=== PATIENT | female | born 1935 | race Caucasian/White ===

== ENCOUNTER 2018-04-19 15:28 | Inpatient (IN) ==
--- NOTE | 2018-04-19 16:29 | ED ---
HPI General Chief Complaint: Psychiatric Symptoms Stated Complaint: Psych Eval/FCSO Time Seen by Provider: 04/19/18 16:18 Source: patient and other (Urena act report) History of Present Illness HPI Narrative: She is alert and oriented to self, president, [id number] female presents to the emergency department under Urena act. According to the Urena act report the patient was rambling incoherently and telling me that she observed people currently in her home that were not present. She was unable to formulate a complete thought and appeared extremely paranoid. It was determined that she met Urena act criteria without care or may not be able to care for herself causing personal neglect. On my examination the patient states she has had some confusion for an unknown amount of time. She says it could have been 6 months or the last couple days, but she does not know. When I asked her if she lives by herself she says "I do now." I asked her how long she has been living by herself and she says "for 1 day." She is alert and oriented to self, place, president, but not time. She denies suicidal or homicidal ideations. Denies history of suicidal attempts. Denies fever, vomiting, chest pain, shortness of breath, abdominal pain, dysuria. Reports urinary frequency, but states she drinks a lot of water. When asked if she is had any recent falls or injury, she says she can remember an occurrence where she fell, but does not know when it occurred. Denies auditory or visual hallucinations. Denies illicit drug use, tobacco use. Reports occasional alcohol use. Denies psychiatric history. Denies seeing a psychiatrist for any reason. Onset unknown. Duration unknown. Symptoms are moderate to severe in severity. No known aggravating or relieving factors. No treatments tried. History of hypertension. Allergies as listed on the chart. Primary care provider is Dr. dumas. Has no other medical complaints. No other modifying factors or associated signs and symptoms. Related Data Home Medications Medication Instructions Recorded Confirmed enalapril maleate 2.5 mg PO BID 04/19/18 04/19/18 isosorbide mononitrate 60 mg PO DAILY 04/19/18 04/19/18 rosuvastatin [Crestor] 5 mg PO DAILY 04/19/18 04/19/18 Previous Rx's Medication Instructions Recorded nitrofurantoin monohyd/m-cryst 100 mg PO BID 5 Days #10 cap 04/19/18 [Macrobid] Allergies Allergy/AdvReac Type Severity Reaction Status Date / Time cephalexin Allergy Intermediate BLISTERS Unverified 10/18/16 11:59 penicillin G Allergy Intermediate BLISTERS, Unverified 10/18/16 11:59 SWELLING Cephalosporins Allergy Unknown UNKNOWN Verified 04/19/18 18:40 grapefruit Allergy Unknown STOMACH Unverified 10/18/16 11:59 ACHES Penicillins Allergy Unknown UNKNOWN Verified 04/19/18 18:40 pineapple Allergy Unknown CHAPPING Unverified 10/18/16 11:59 OF SKIN FROM CONTACT WITH PINEAPPLE hydromorphone AdvReac Unknown HALLUCINATI Unverified 10/18/16 11:59 ONS NICKEL Allergy Unknown CONTACT Uncoded 09/16/13 08:53 RASH FROM EXPOSURE TO NICKEL Review of Systems ROS: all other systems reviewed are negative [facility] Medical History Medical History Coronary artery disease (Acute) H/O fracture of wrist (Acute) H/O peptic ulcer (Acute) H/O recurrent urinary tract infection (Acute) H/O: osteoarthritis (Acute) Hx of polymyalgia rheumatica (Acute) Hypertension (Acute) Wears glasses (Acute) Surgical History Surgical History History of appendectomy (Acute) History of cataract extraction with lens replacement (Acute) History of coronary artery stent placement (Acute) History of open reduction and internal fixation (ORIF) procedure (Acute) Hx of CABG (Acute) Hx of cataract surgery (Acute) Social History Social History Substance History: No History of Abuse Second Hand Smoke Exposure: No Smoking Status: Never smoker How Often Do You Have a Drink Containing Alcohol: Never Recent Travel in [place] within the Last 8 Weeks: No Recent Out of Country Travel within the Last 8 Weeks: No Exam Narrative Exam Narrative: GENERAL: Well-nourished, well-developed elderly, female patient, in no acute distress SKIN: Warm and dry. HEAD: Atraumatic. Normocephalic. EYES: Pupils equal and round. ENT: Mucosa pink and moist. NECK: Supple. Trachea midline. CARDIOVASCULAR: Regular rate and rhythm. No murmur appreciated. RESPIRATORY: No accessory muscle use. Clear to auscultation. Breath sounds equal bilaterally. GASTROINTESTINAL: Abdomen soft, non-tender, nondistended. Hepatic and splenic margins not palpable. Bowel sounds are active 4 quadrants. MUSCULOSKELETAL: No obvious deformities. No clubbing. No cyanosis. No edema. BACK: No CVA tenderness. NEUROLOGICAL: Awake and alert. Oriented 3; soft, place, president; not oriented to time. No obvious cranial nerve deficits. Motor grossly within normal limits. Normal speech. Moves all extremities. 5/5 strength to all extremities. PSYCHIATRIC: No delusional thought processes. No hallucinations. Course Initial Documented Vital Signs Temperature 97.6 F 04/19/18 15:49 Pulse Rate 91 H 04/19/18 15:49 Respiratory Rate 18 04/19/18 15:49 Blood Pressure 164/78 H 04/19/18 15:49 Pulse Oximetry 100 04/19/18 15:49 Last Documented Vital Signs Temperature 97.8 F 04/23/18 06:36 Pulse Rate 99 H 04/23/18 06:36 Respiratory Rate 18 04/23/18 06:36 Blood Pressure 154/70 H 04/23/18 06:36 Pulse Oximetry 94 L 04/23/18 06:36 Medical Decision Making [facility] Narrative Medical decision making narrative: Patient presents under a Urena act. Physical examination and vital signs are essentially unremarkable. Patient has no medical complaints to report. Psych screen has been ordered. If the laboratory results are unremarkable, the patient will be medically cleared for psychiatric evaluation and disposition. CT head ordered. CT head concluded: No acute findings in the brain.2. 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 Patient provided a copy of the CT report. Patient has altered mental status at this time. Otherwise, the patient needs to follow-up with skoog machine operator in regards to the retroconal mass in the right orbit. Urinalysis positive for infection. Patient is allergic to Keflex and penicillin. Macrobid ordered and scheduled. Macrobid prescription printed out for home. Medical Screen Exam Complete: Yes Emergency Medical Condition: Yes Differential Diagnosis Differential Diagnosis: Dementia, UTI, brief psychotic disorder, hallucinations , medical clearance for psychiatric assessment Lab Data Result diagrams: 04/22/18 18:14 04/22/18 18:14 Lab Results 04/19/18 04/19/18 04/19/18 Range/Units 16:09 16:09 16:22 WBC 6.4 (4.0-11.0) th/mm3 RBC 3.64 L (4.00-5.30) mil/mm3 Hgb 12.0 (11.6-15.3) gm/dL Hct 34.3 L (35.0-46.0) % MCV 94.3 (80.0-100.0) fL MCH 32.9 (27.0-34.0) pg MCHC 34.9 (32.0-36.0) % RDW 13.1 (11.6-17.2) % Plt Count 217 (150-450) th/mm3 MPV 8.5 (7.0-11.0) fL Neut % (Auto) 71.4 H (16.0-70.0) % Lymph % (Auto) 18.9 (9.0-44.0) % [place] % (Auto) 8.6 H (0.0-8.0) % Eos % (Auto) 0.7 (0.0-4.0) % Baso % (Auto) 0.4 (0.0-2.0) % Neut # (Auto) 4.6 (1.8-7.7) th/mm3 Lymph # (Auto) 1.2 (1.0-4.8) th/mm3 [place] # (Auto) 0.6 (0.0-0.9) th/mm3 Eos # (Auto) 0.0 (0.0-0.4) th/mm3 Baso # (Auto) 0.0 (0.0-0.2) th/mm3 WBC Differential . Differential Comment Auto diff final Sodium (136-145) meq/L Potassium (3.5-5.1) meq/L Chloride (98-107) meq/L Carbon Dioxide (21.0-32.0) meq/L Anion Gap (5-15) meq/L BUN (7-18) mg/dL Creatinine (0.50-1.00) mg/dL Estimated GFR (>89) mL/min POC Glucose (68-110) mg/dl Random Glucose (74-106) mg/dL Calcium (8.5-10.1) mg/dL Magnesium (1.5-2.5) mg/dL Total Bilirubin (0.2-1.0) mg/dL AST (15-37) U/L ALT (10-53) U/L Alkaline Phosphatase (45-117) U/L Total Protein (6.4-8.2) g/dL Albumin (3.4-5.0) g/dL TSH (0.358-3.740) uIU/mL Urine Color Yellow (Yellw/Straw) Urine Clarity Hazy H (Clear) Urine pH 6.0 (5.0-8.5) Ur Specific [place] 1.014 (1.002-1.035) Urine Protein Negative (Neg-Trace) mg/dL Urine Glucose (UA) Negative (Negative) mg/dL Urine Ketones Trace H (Negative) mg/dL Urine Occult Blood Negative (Negative) Urine Nitrate Negative (Negative) Urine Bilirubin Negative (Negative) Urine Urobilinogen Less than 2 (Less than 2) mg/dL Ur Leukocyte Esterase Trace H (Negative) Urine RBC 1 (0-3) /hpf Urine WBC 18 H (0-5) /hpf Ur Squamous Epith Cells 1 (0-5) /hpf Urine Bacteria Many H (None) /hpf Urine Mucus Few H (Occasional) /lpf Micro UA Comment Culture indicated Ur Microscopic Review Not Reportable Urine Culture Comments Culture indicated Salicylates (2.8-20.0) mg/dL Urine Opiates Screen Neg (Neg) Acetaminophen (10.0-30.0) mcg/mL Ur Barbiturates Screen Neg (Neg) Ur Amphetamines Screen Neg (Neg) U Benzodiazepines Scrn Neg (Neg) Urine Cocaine Screen Neg (Neg) U Cannabinoids Screen Neg (Neg) Serum Alcohol (0-5) mg/dL 04/19/18 04/19/18 04/20/18 Range/Units 16:22 16:22 17:14 WBC (4.0-11.0) th/mm3 RBC (4.00-5.30) mil/mm3 Hgb (11.6-15.3) gm/dL Hct (35.0-46.0) % MCV (80.0-100.0) fL MCH (27.0-34.0) pg MCHC (32.0-36.0) % RDW (11.6-17.2) % Plt Count (150-450) th/mm3 MPV (7.0-11.0) fL Neut % (Auto) (16.0-70.0) % Lymph % (Auto) (9.0-44.0) % [place] % (Auto) (0.0-8.0) % Eos % (Auto) (0.0-4.0) % Baso % (Auto) (0.0-2.0) % Neut # (Auto) (1.8-7.7) th/mm3 Lymph # (Auto) (1.0-4.8) th/mm3 [place] # (Auto) (0.0-0.9) th/mm3 Eos # (Auto) (0.0-0.4) th/mm3 Baso # (Auto) (0.0-0.2) th/mm3 WBC Differential Differential Comment Sodium 140 (136-145) meq/L Potassium 3.8 (3.5-5.1) meq/L Chloride 108 H (98-107) meq/L Carbon Dioxide 24.7 (21.0-32.0) meq/L Anion Gap 7 (5-15) meq/L BUN 23 H (7-18) mg/dL Creatinine 1.23 H (0.50-1.00) mg/dL Estimated GFR 41 L (>89) mL/min POC Glucose 177 H (68-110) mg/dl Random Glucose 99 (74-106) mg/dL Calcium 8.9 (8.5-10.1) mg/dL Magnesium 2.3 (1.5-2.5) mg/dL Total Bilirubin 0.6 (0.2-1.0) mg/dL AST 22 (15-37) U/L ALT 24 (10-53) U/L Alkaline Phosphatase 50 (45-117) U/L Total Protein 8.0 (6.4-8.2) g/dL Albumin 4.2 (3.4-5.0) g/dL TSH 1.560 (0.358-3.740) uIU/mL Urine Color (Yellw/Straw) Urine Clarity (Clear) Urine pH (5.0-8.5) Ur Specific Ozan (1.002-1.035) Urine Protein (Neg-Trace) mg/dL Urine Glucose (UA) (Negative) mg/dL Urine Ketones (Negative) mg/dL Urine Occult Blood (Negative) Urine Nitrate (Negative) Urine Bilirubin (Negative) Urine Urobilinogen (Less than 2) mg/dL Ur Leukocyte Esterase (Negative) Urine RBC (0-3) /hpf Urine WBC (0-5) /hpf Ur Squamous Epith Cells (0-5) /hpf Urine Bacteria (None) /hpf Urine Mucus (Occasional) /lpf Micro UA Comment Ur Microscopic Review Urine Culture Comments Salicylates Less than 1.7 L (2.8-20.0) mg/dL Urine Opiates Screen (Neg) Acetaminophen Less than 2.0 L (10.0-30.0) mcg/mL Ur Barbiturates Screen (Neg) Ur Amphetamines Screen (Neg) U Benzodiazepines Scrn (Neg) Urine Cocaine Screen (Neg) U Cannabinoids Screen (Neg) Serum Alcohol Less than 3 (0-5) mg/dL 04/22/18 04/22/18 Range/Units 18:14 18:14 WBC 7.4 (4.0-11.0) th/mm3 RBC 3.85 L (4.00-5.30) mil/mm3 Hgb 12.2 (11.6-15.3) gm/dL Hct 36.5 (35.0-46.0) % MCV 94.7 (80.0-100.0) fL MCH 31.7 (27.0-34.0) pg MCHC 33.5 (32.0-36.0) % RDW 13.4 (11.6-17.2) % Plt Count 265 (150-450) th/mm3 MPV 9.3 (7.0-11.0) fL Neut % (Auto) 68.5 (16.0-70.0) % Lymph % (Auto) 20.9 (9.0-44.0) % [place] % (Auto) 9.9 H (0.0-8.0) % Eos % (Auto) 0.3 (0.0-4.0) % Baso % (Auto) 0.4 (0.0-2.0) % Neut # (Auto) 5.1 (1.8-7.7) th/mm3 Lymph # (Auto) 1.6 (1.0-4.8) th/mm3 [place] # (Auto) 0.7 (0.0-0.9) th/mm3 Eos # (Auto) 0.0 (0.0-0.4) th/mm3 Baso # (Auto) 0.0 (0.0-0.2) th/mm3 WBC Differential . Differential Comment Auto diff final Sodium 141 (136-145) meq/L Potassium 4.2 (3.5-5.1) meq/L Chloride 112 H (98-107) meq/L Carbon Dioxide 19.5 L (21.0-32.0) meq/L Anion Gap 10 (5-15) meq/L BUN 33 H (7-18) mg/dL Creatinine 1.89 H (0.50-1.00) mg/dL Estimated GFR 25 L (>89) mL/min POC Glucose (68-110) mg/dl Random Glucose 103 (74-106) mg/dL Calcium 9.2 (8.5-10.1) mg/dL Magnesium (1.5-2.5) mg/dL Total Bilirubin (0.2-1.0) mg/dL AST (15-37) U/L ALT (10-53) U/L Alkaline Phosphatase (45-117) U/L Total Protein (6.4-8.2) g/dL Albumin (3.4-5.0) g/dL TSH (0.358-3.740) uIU/mL Urine Color (Yellw/Straw) Urine Clarity (Clear) Urine pH (5.0-8.5) Ur Specific [place] (1.002-1.035) Urine Protein (Neg-Trace) mg/dL Urine Glucose (UA) (Negative) mg/dL Urine Ketones (Negative) mg/dL Urine Occult Blood (Negative) Urine Nitrate (Negative) Urine Bilirubin (Negative) Urine Urobilinogen (Less than 2) mg/dL Ur Leukocyte Esterase (Negative) Urine RBC (0-3) /hpf Urine WBC (0-5) /hpf Ur Squamous Epith Cells (0-5) /hpf Urine Bacteria (None) /hpf Urine Mucus (Occasional) /lpf Micro UA Comment Ur Microscopic Review Urine Culture Comments Salicylates (2.8-20.0) mg/dL Urine Opiates Screen (Neg) Acetaminophen (10.0-30.0) mcg/mL Ur Barbiturates Screen (Neg) Ur Amphetamines Screen (Neg) U Benzodiazepines Scrn (Neg) Urine Cocaine Screen (Neg) U Cannabinoids Screen (Neg) Serum Alcohol (0-5) mg/dL Imaging Data Radiologist's impression: Head CT 04/19/18 16:37 CONCLUSION: 1. No acute findings in the brain. 2. 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 . Carotid Doppler Study 04/20/18 00:00 CONCLUSION: Minimal plaque at the carotid bulb regions without significant stenosis. Discharge Plan Discharge Disposition Patient Disposition: Sign Out(ED Internal Use Only) Discharge Condition Condition: Stable Discharge Order Discharge Orders: ED Use Only Admit Order (Routine); Ordered 04/19/18 Ordered By: Sam Joyce Discharge Details Diagnosis: Encounter for psychiatric assessment, Altered mental status, UTI (urinary tract infection) Physicians Team ED Provider: David Kramer ED Midlevel Provider: Pat Tolbert Primary Care Provider: Carter Francois Attending Provider: Taco Kuo Other Providers: Vimal Joyce Status ED Status: Left Department Discharge Information Discharge Date/Time: 04/19/18 22:00
[2018-04-19 16:39] LABS: Baso % (Auto) 0.4 % (0.0-2.0); Eos % (Auto) 0.7 % (0.0-4.0); Hematocrit 34.3 % (35.0-46.0); Lymph # (Auto) 1.2 th/mm3 (1.0-4.8); Lymph % (Auto) 18.9 % (9.0-44.0); Mean Corpuscular HGB Conc 34.9 % (32.0-36.0); Mean Corpuscular Hemoglobin 32.9 pg (27.0-34.0); Mean Corpuscular Volume 94.3 fL (80.0-100.0); Mean Platelet Volume 8.5 fL (7.0-11.0); Mono # (Auto) 0.6 th/mm3 (0.0-0.9); Mono % (Auto) 8.6 % (0.0-8.0); Neut # (Auto) 4.6 th/mm3 (1.8-7.7); Neut % (Auto) 71.4 % (16.0-70.0); Platelet Count 217 th/mm3 (150-450); Red Blood Count 3.64 mil/mm3 (4.00-5.30); Red Cell Distribution Width 13.1 % (11.6-17.2); White Blood Count 6.4 th/mm3 (4.0-11.0)
[2018-04-19 16:53] LABS: Bacteria,Urine Many /hpf; Bilirubin,Urine Negative (Negative); Clarity,Urine Hazy (Clear); Color,Urine Yellow (Yellw/Straw); Glucose,Urine (UA) Negative (Negative); Leukocyte Esterase,Urine Trace (Negative); Mucus,Urine Few /lpf (Occasional); Nitrite,Urine Negative (Negative); Specific Gravity,Urine 1.014 (1.002-1.035); Squamous Epithelial Cell,Urine 1 /hpf (0-5)
[2018-04-19 16:57] LABS: Amphetamine Screen,Urine Neg (Neg); Barbiturate Screen,Urine Neg (Neg); Cannabinoid Screen,Urine Neg (Neg); Cocaine Screen,Urine Neg (Neg)
[2018-04-19 17:04] LABS: Opiate Screen,Urine Neg (Neg)
[2018-04-19 17:06] LABS: Albumin 4.2 g/dL (3.4-5.0); Anion Gap 7 meq/L (5-15); Aspartate Aminotransferase 22 U/L (15-37); Blood Urea Nitrogen 23 mg/dL (7-18); Calcium 8.9 mg/dL (8.5-10.1); Carbon Dioxide 24.7 meq/L (21.0-32.0); Chloride 108 meq/L (98-107); Glomerular Filtration Rate 41 mL/min (>89); Glucose,Random 99 mg/dL (74-106); Magnesium 2.3 mg/dL (1.5-2.5); Potassium 3.8 meq/L (3.5-5.1); Sodium 140 meq/L (136-145)
[2018-04-19 17:23] LABS: Alanine Aminotransferase 24 U/L (10-53); Alkaline Phosphatase 50 U/L (45-117)
--- NOTE | 2018-04-19 17:26 | CT ---
EXAM DATE: 04/19/2018 5:19 PM EST AGE/SEX: 83 years / Female INDICATIONS: Altered mental status. CLINICAL DATA: This is the patient's initial encounter. Patient reports that signs and symptoms have been present for 1 day and indicates a pain score of 0/10. MEDICAL/SURGICAL HISTORY: None. None. RADIATION DOSE: 56.35 CTDI (mGy) COMPARISON: [facility], MR BRAIN W AND W/O CONTRAST, 10/05/2015. . TECHNIQUE: CT of the head without contrast. Using automated exposure control and adjustment of the mA and/or kV according to patient size, radiation dose was kept as low as reasonably achievable to ob tain optimal diagnostic quality images. DICOM format image data is available electronically for revi ew and comparison. FINDINGS: Cerebrum: The ventricles, sulci, and basal cisterns are prominent, characteristic of moderate severi ty central and cortical atrophy.. No evidence of midline shift, mass lesion, hemorrhage or acute inf arction. No extraaxial fluid collections are seen. Posterior Fossa: The cerebellum and brainstem are intact. The 4th ventricle is midline. The cerebe llopontine angle is unremarkable. 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 Skull: The calvaria is intact. No evidence of skull fracture. CONCLUSION: 1. No acute findings in the brain. 2. 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 . Electronically signed by: Wei Dodge MD Board Certified Radiologist 04/19/2018 5:24 PM EST
[2018-04-19] MEDS: Nitrofurantoin Monohydrate-Macrocrystal 100 MG Capsule PO SCH (19:48)
--- NOTE | 2018-04-19 21:36 | ED ---
HPI - Psych - General Source: patient, other (Urena act report) Limitations: no limitations - History of Present Illness MD complaint: altered mental status Duration: constant History of same: Yes Relieving factors: none Exacerbating factors: none Associated psychiatric symptoms: none Associated symptoms: confusion Treatments prior to arrival: none - General Chief Complaint: Psychiatric Symptoms Stated Complaint: Psych Eval/FCSO Time Seen by Provider: 04/19/18 16:18 - History of Present Illness HPI Narrative: This patient is a 83 years old female brought to the ED on a Urena act initiated by land law examiner. The police stated in the Urena Act that when he arrived that the patient home she was rambling incoherently rent and talking to persons that were not presents and that she was expressing paranoid thoughts. The police stated that he Urena acted the patient because he felt that she were unable to care for herself safely. The patient presents calm and not displaying any behavioral disturbances or agitation. The patient the patient is confused and she thinks that he is still at her home. She is unable to give an account of the events leading up to her being Urena acted. I spoke to the patient's daughter on the phone and she reported that her mother is diagnosed with early stage dementia. A live-in administration professional reported a drastic deterioration in her mental status in the last 3 days. The daughter stated that she patient was diagnosed with a urinary tract infection but the patient have not been taking the medications. The patient does not appears to be responding to any hallucinations and no self-harm gestures has been observed. (Sam Joyce) - Related Data Home Medications Medication Instructions Recorded Confirmed enalapril maleate 2.5 mg PO BID 04/19/18 04/19/18 isosorbide mononitrate 60 mg PO DAILY 04/19/18 04/19/18 rosuvastatin [Crestor] 5 mg PO DAILY 04/19/18 04/19/18 Previous Rx's Medication Instructions Recorded nitrofurantoin monohyd/m-cryst 100 mg PO BID 5 Days #10 cap 04/19/18 [Macrobid] Allergies Allergy/AdvReac Type Severity Reaction Status Date / Time cephalexin Allergy Intermediate BLISTERS Unverified 10/18/16 11:59 penicillin G Allergy Intermediate BLISTERS, Unverified 10/18/16 11:59 SWELLING Cephalosporins Allergy Unknown UNKNOWN Verified 04/19/18 18:40 grapefruit Allergy Unknown STOMACH Unverified 10/18/16 11:59 ACHES Penicillins Allergy Unknown UNKNOWN Verified 04/19/18 18:40 pineapple Allergy Unknown CHAPPING Unverified 10/18/16 11:59 OF SKIN FROM CONTACT WITH PINEAPPLE hydromorphone AdvReac Unknown HALLUCINATI Unverified 10/18/16 11:59 ONS NICKEL Allergy Unknown CONTACT Uncoded 09/16/13 08:53 RASH FROM EXPOSURE TO NICKEL PMFSH - History History Provided By: Patient, Medical Record, Law Enforcement - Substance Use History Substance History: No History of Abuse - Travel History Recent Travel in the [place] Within the Last 8 Weeks: No Recent Travel Out of the Country Within the Last 8 Weeks: No Psychiatric History - Psychiatric History History of Inpatient Treatment: No Firearms in Home: No - Psychiatric History The patient's daughter reported that her mother have been diagnosed with early stage dementia and depression. (Sam Joyce) - Legal History Unable to verify. (Sam Joyce) - Family Psychiatric History Unable to verify (Sam Joyce) Mental Status Examination Appearance: Appropriate Consciousness: Alert, Clouded Orientation: Person Motor Activity: Normal gait Speech: Unremarkable Language: Adequate Fund of Knowledge: Poor Attention and Concentration: Easily distracted, Inadequate Memory: Impaired Mood: Appropriate Thought Process & Associations: Logical, Disorganized Thought Content: Other Hallucination Type: None Delusion Type: None Suicidal Ideation: No Suicidal Plan: No Suicidal Intention: No Homicidal Ideation: No Homicidal Plan: No Homicidal Intention: No Insight: Poor Judgment: Poor Initial Documented Vital Signs Temperature 97.6 F 04/19/18 15:49 Pulse Rate 91 H 04/19/18 15:49 Respiratory Rate 18 04/19/18 15:49 Blood Pressure 164/78 H 04/19/18 15:49 Pulse Oximetry 100 04/19/18 15:49 Last Documented Vital Signs Temperature 97.8 F 04/19/18 19:58 Pulse Rate 73 04/19/18 19:58 Respiratory Rate 14 04/19/18 19:58 Blood Pressure 154/73 H 04/19/18 19:58 Pulse Oximetry 100 04/19/18 19:58 MDM - Psych - Diagnosis (1) Dementia Code(s): F03.90 - Unspecified dementia without behavioral disturbance Status: Acute (2) Altered mental status Code(s): R41.82 - Altered mental status, unspecified Status: Acute - Lab Data Result diagrams: 04/19/18 16:22 04/19/18 16:22 - MDM Narrative Medical decision making narrative: The patient continues to present with altered mental status and disorientation but however the patient is calm and not displaying any agitation or behavioral disturbances. The patient denies any suicidal thoughts and no self-harm gestures noted. I spoke with patient's daughter via telephone and she is advocating inpatient care for her mother. She reported that her 2 other siblings who live in nearby counties in [place] will be coming to the hospital tomorrow to make plans for long-term care and supervision of the patient. I will continue the Urena act and admit the patient to the 2600 unit for further psychiatric evaluation and stabilization. (Sam Joyce) - Lab Data Lab Results 04/19/18 04/19/18 04/19/18 Range/Units 16:09 16:09 16:22 WBC 6.4 (4.0-11.0) th/mm3 RBC 3.64 L (4.00-5.30) mil/mm3 Hgb 12.0 (11.6-15.3) gm/dL Hct 34.3 L (35.0-46.0) % MCV 94.3 (80.0-100.0) fL MCH 32.9 (27.0-34.0) pg MCHC 34.9 (32.0-36.0) % RDW 13.1 (11.6-17.2) % Plt Count 217 (150-450) th/mm3 MPV 8.5 (7.0-11.0) fL Neut % (Auto) 71.4 H (16.0-70.0) % Lymph % (Auto) 18.9 (9.0-44.0) % [place] % (Auto) 8.6 H (0.0-8.0) % Eos % (Auto) 0.7 (0.0-4.0) % Baso % (Auto) 0.4 (0.0-2.0) % Neut # (Auto) 4.6 (1.8-7.7) th/mm3 Lymph # (Auto) 1.2 (1.0-4.8) th/mm3 [place] # (Auto) 0.6 (0.0-0.9) th/mm3 Eos # (Auto) 0.0 (0.0-0.4) th/mm3 Baso # (Auto) 0.0 (0.0-0.2) th/mm3 WBC Differential . Differential Comment Auto diff final Sodium (136-145) meq/L Potassium (3.5-5.1) meq/L Chloride (98-107) meq/L Carbon Dioxide (21.0-32.0) meq/L Anion Gap (5-15) meq/L BUN (7-18) mg/dL Creatinine (0.50-1.00) mg/dL Estimated GFR (>89) mL/min Random Glucose (74-106) mg/dL Calcium (8.5-10.1) mg/dL Magnesium (1.5-2.5) mg/dL Total Bilirubin (0.2-1.0) mg/dL AST (15-37) U/L ALT (10-53) U/L Alkaline Phosphatase (45-117) U/L Total Protein (6.4-8.2) g/dL Albumin (3.4-5.0) g/dL TSH (0.358-3.740) uIU/mL Urine Color Yellow (Yellw/Straw) Urine Clarity Hazy H (Clear) Urine pH 6.0 (5.0-8.5) Ur Specific [place] 1.014 (1.002-1.035) Urine Protein Negative (Neg-Trace) mg/dL Urine Glucose (UA) Negative (Negative) mg/dL Urine Ketones Trace H (Negative) mg/dL Urine Occult Blood Negative (Negative) Urine Nitrate Negative (Negative) Urine Bilirubin Negative (Negative) Urine Urobilinogen Less than 2 (Less than 2) mg/dL Ur Leukocyte Esterase Trace H (Negative) Urine RBC 1 (0-3) /hpf Urine WBC 18 H (0-5) /hpf Ur Squamous Epith Cells 1 (0-5) /hpf Urine Bacteria Many H (None) /hpf Urine Mucus Few H (Occasional) /lpf Micro UA Comment Culture indicated Ur Microscopic Review Not Reportable Urine Culture Comments Culture indicated Salicylates (2.8-20.0) mg/dL Urine Opiates Screen Neg (Neg) Acetaminophen (10.0-30.0) mcg/mL Ur Barbiturates Screen Neg (Neg) Ur Amphetamines Screen Neg (Neg) U Benzodiazepines Scrn Neg (Neg) Urine Cocaine Screen Neg (Neg) U Cannabinoids Screen Neg (Neg) Serum Alcohol (0-5) mg/dL 04/19/18 04/19/18 Range/Units 16:22 16:22 WBC (4.0-11.0) th/mm3 RBC (4.00-5.30) mil/mm3 Hgb (11.6-15.3) gm/dL Hct (35.0-46.0) % MCV (80.0-100.0) fL MCH (27.0-34.0) pg MCHC (32.0-36.0) % RDW (11.6-17.2) % Plt Count (150-450) th/mm3 MPV (7.0-11.0) fL Neut % (Auto) (16.0-70.0) % Lymph % (Auto) (9.0-44.0) % Kem[place] % (Auto) (0.0-8.0) % Eos % (Auto) (0.0-4.0) % Baso % (Auto) (0.0-2.0) % Neut # (Auto) (1.8-7.7) th/mm3 Lymph # (Auto) (1.0-4.8) th/mm3 [place] # (Auto) (0.0-0.9) th/mm3 Eos # (Auto) (0.0-0.4) th/mm3 Baso # (Auto) (0.0-0.2) th/mm3 WBC Differential Differential Comment Sodium 140 (136-145) meq/L Potassium 3.8 (3.5-5.1) meq/L Chloride 108 H (98-107) meq/L Carbon Dioxide 24.7 (21.0-32.0) meq/L Anion Gap 7 (5-15) meq/L BUN 23 H (7-18) mg/dL Creatinine 1.23 H (0.50-1.00) mg/dL Estimated GFR 41 L (>89) mL/min Random Glucose 99 (74-106) mg/dL Calcium 8.9 (8.5-10.1) mg/dL Magnesium 2.3 (1.5-2.5) mg/dL Total Bilirubin 0.6 (0.2-1.0) mg/dL AST 22 (15-37) U/L ALT 24 (10-53) U/L Alkaline Phosphatase 50 (45-117) U/L Total Protein 8.0 (6.4-8.2) g/dL Albumin 4.2 (3.4-5.0) g/dL TSH 1.560 (0.358-3.740) uIU/mL Urine Color (Yellw/Straw) Urine Clarity (Clear) Urine pH (5.0-8.5) Ur Specific [place] (1.002-1.035) Urine Protein (Neg-Trace) mg/dL Urine Glucose (UA) (Negative) mg/dL Urine Ketones (Negative) mg/dL Urine Occult Blood (Negative) Urine Nitrate (Negative) Urine Bilirubin (Negative) Urine Urobilinogen (Less than 2) mg/dL Ur Leukocyte Esterase (Negative) Urine RBC (0-3) /hpf Urine WBC (0-5) /hpf Ur Squamous Epith Cells (0-5) /hpf Urine Bacteria (None) /hpf Urine Mucus (Occasional) /lpf Micro UA Comment Ur Microscopic Review Urine Culture Comments Salicylates Less than 1.7 L (2.8-20.0) mg/dL Urine Opiates Screen (Neg) Acetaminophen Less than 2.0 L (10.0-30.0) mcg/mL Ur Barbiturates Screen (Neg) Ur Amphetamines Screen (Neg) U Benzodiazepines Scrn (Neg) Urine Cocaine Screen (Neg) U Cannabinoids Screen (Neg) Serum Alcohol Less than 3 (0-5) mg/dL
[2018-04-19] MEDS ORDERED: Aluminum/Magnesium/Simethacone Susp 30 ML UDC PO PRN (21:38)
[2018-04-19] MEDS ORDERED: Bisacodyl 10 MG Supp RECTAL PRN (21:38)
--- NOTE | 2018-04-20 10:04 | P.HPPSY ---
Provisional Diagnosis Admission Date: April 19, 2018 21:36 [place] I.: Dementia with psychosis Competence Certification of Person's Competence To Provide Express and Informed Consent I have personally examined Thania Arguelles, a person being served at [facility] on, April 20, 2018 0952. Express and informed consent means consent voluntarily given in writing, by a competent person, after sufficient explanation and disclosure of the subject matter involved to enable the person to make a knowing and willful decision without any element of force, fraud, deceit, duress, or other form of constraint or coercion. This person is 18 years of age or older, is not now known to be incompetent to consent to treatment with a guardian advocate, and does not have a health care surrogate or proxy currently making medical treatment decisions. I have found this person to be one of the following: [] Competent to provide express and informed consent, as defined above, for voluntary admission to this facility and is competent to provide express and informed consent for treatment. He/she has the consistent capacity to make well reasoned, willful, and knowing decisions concerning his or her medical or mental health treatment. The person fully and consistently understands the purpose of the admission for examination/placement and is fully capable of personally exercising all rights assured [place] [] Incompetent to provide express and informed consent to voluntary admission, and this is incompetent to provide express and informed consent to treatment. The person must be transferred to involuntary status and a petition for a guardian advocate filed with the Circuit Court. [] Refusing to provide express and informed consent to voluntary admission but is competent to provide express and informed consent for treatment. The person must be discharged or transferred to involuntary status. Form shall be completed within 24 hours of a person's arrival at the receiving facility and filed in the clinical record of each person: 1. Admitted on a voluntary basis 2. Permitted to provide express and informed consent to his/her own treatment 3. Allowed to transfer from involuntary to voluntary status 4. Prior to permitting a person to consent to his or her own treatment after having been previously found incompetent to consent to treatment. History of Present Illness Capacity: Lacks capacity Chief Complaint: Auditory and possible visual hallucinations. Confusion and disorientation History of Present Illness: HPI: Patient is a 83-year-old black female who is brought in a Urena act that described the patient is talking to people who were not present, being confused and felt to be unable to care for herself. The patient was said to be being treated for UTI but was not taking her medication. On admission to the ED there is no clear evidence of delirium but the patient was disoriented as to time place and situation. Patient today is oriented only to person. Patient does endorse having had the experience of talking to people who others did not believe for her in the room. Patient is not aware of her medications and unable to comply. - Inpatient Certification I certify that the inpatient services were ordered in accordance with Medicare regulations governing the order. This includes certification that hospital inpatient services are reasonable and necessary and in the case of services not specified as inpatient-only under 42 CFR 419.22(n), that they are appropriately provided as inpatient services in accordance to with the 2-midnight benchmark under 43 CFR 412.3(e) I certify that inpatient psychiatric hospital services are medically necessary. Evaluation and treatment and/or diagnostic testing are expected to improve the patient's condition. The patient needs on a daily basis, active treatment furnished directly by or requiring the supervision of inpatient psychiatric facility personnel. Estimated Total Length of Stay (Days): 7 Plans for Post Hospital Care: Home Review of Systems Patient is too confused to give her responses to questions on the ROS. [facility] - History History Provided By: Medical Record - Medical History Medical History: Medical History (Last Updated 04/20/18 @ 00:42 by Rachel Douglas RN) Coronary artery disease H/O fracture of wrist H/O peptic ulcer H/O recurrent urinary tract infection H/O: osteoarthritis Hx of polymyalgia rheumatica Hypertension Wears glasses - Surgical History Surgical History: Surgical History (Last Updated 04/20/18 @ 00:42 by Rachel Douglas RN) History of appendectomy History of cataract extraction with lens replacement History of coronary artery stent placement History of open reduction and internal fixation (ORIF) procedure Hx of CABG Hx of cataract surgery - Tobacco History Second Hand Smoke Exposure: No Smoking Status: Never smoker - Alcohol History How Often Do You Have a Drink Containing Alcohol: Never - Substance Use History Substance History: No History of Abuse - Travel History Recent Travel in the [place] Within the Last 8 Weeks: No Recent Travel Out of the Country Within the Last 8 Weeks: No - Immunization History Tetanus Immunization: Unable to Assess Hx Influenza Vaccine This Season: Unable to Assess Medications and Allergies Active Medications: Active Medications Al Hydrox/Mg Hydrox/Simethicone (Mag-Al Plus Susp Liq) 30 ml PO Q6H PRN PRN Reason: DYSPEPSIA Al Hydroxide/Mg Hydroxide (Milk Of Magnesia Liq) 30 ml PO Q12H PRN PRN Reason: Mild Constipation Bisacodyl (Dulcolax Supp) 10 mg RECTAL DAILY PRN PRN Reason: SEVERE CONSITIPATION Hydroxyzine HCl (Atarax) 25 mg PO Q6H PRN PRN Reason: ANXIETY Lactulose (Lactulose Liq) 30 ml PO DAILY PRN PRN Reason: SEVERE CONSITIPATION Nitrofurantoin Macrocrystals (Macrobid) 100 mg PO BIDPC INA Stop: 04/24/18 18:29 Last Admin: 04/19/18 19:48 Dose: 100 mg Perphenazine (Trilafon) 4 mg PO BID INA Senna/Docusate Sodium (Reyna-Colace) 1 tab PO BID INA Sennosides (Senokot) 17.2 mg PO Q12H PRN PRN Reason: Moderate Constipation Allergies Allergy/AdvReac Type Severity Reaction Status Date / Time cephalexin Allergy Intermediate BLISTERS Unverified 10/18/16 11:59 penicillin G Allergy Intermediate BLISTERS, Unverified 10/18/16 11:59 SWELLING Cephalosporins Allergy Unknown UNKNOWN Verified 04/19/18 18:40 grapefruit Allergy Unknown STOMACH Unverified 10/18/16 11:59 ACHES Penicillins Allergy Unknown UNKNOWN Verified 04/19/18 18:40 pineapple Allergy Unknown CHAPPING Unverified 10/18/16 11:59 OF SKIN FROM CONTACT WITH PINEAPPLE hydromorphone AdvReac Unknown HALLUCINATI Unverified 10/18/16 11:59 ONS NICKEL Allergy Unknown CONTACT Uncoded 09/16/13 08:53 RASH FROM EXPOSURE TO NICKEL Home Medications Medication Instructions Recorded Confirmed Type enalapril maleate 2.5 mg PO BID 04/19/18 04/19/18 History isosorbide mononitrate 60 mg PO DAILY 04/19/18 04/19/18 History rosuvastatin [Crestor] 5 mg PO DAILY 04/19/18 04/19/18 History Results - Labs CBC & Chem 7: 04/19/18 16:22 04/19/18 16:22 Labs: Laboratory Results - last 24 hr 04/19/18 04/19/18 04/19/18 16:09 16:09 16:22 WBC 6.4 RBC 3.64 L Hgb 12.0 Hct 34.3 L MCV 94.3 MCH 32.9 MCHC 34.9 RDW 13.1 Plt Count 217 MPV 8.5 Neut % (Auto) 71.4 H Lymph % (Auto) 18.9 [place] % (Auto) 8.6 H Eos % (Auto) 0.7 Baso % (Auto) 0.4 Neut # (Auto) 4.6 Lymph # (Auto) 1.2 Parker # (Auto) 0.6 Eos # (Auto) 0.0 Baso # (Auto) 0.0 WBC Differential . Differential Comment Auto diff final Sodium Potassium Chloride Carbon Dioxide Anion Gap BUN Creatinine Estimated GFR Random Glucose Calcium Magnesium Total Bilirubin AST ALT Alkaline Phosphatase Total Protein Albumin TSH Urine Color Yellow Urine Clarity Hazy H Urine pH 6.0 Ur Specific [place] 1.014 Urine Protein Negative Urine Glucose (UA) Negative Urine Ketones Trace H Urine Occult Blood Negative Urine Nitrate Negative Urine Bilirubin Negative Urine Urobilinogen Less than 2 Ur Leukocyte Esterase Trace H Urine RBC 1 Urine WBC 18 H Ur Squamous Epith Cells 1 Urine Bacteria Many H Urine Mucus Few H Micro UA Comment Culture indicated Ur Microscopic Review Not Reportable Urine Culture Comments Culture indicated Salicylates Urine Opiates Screen Neg Acetaminophen Ur Barbiturates Screen Neg Ur Amphetamines Screen Neg U Benzodiazepines Scrn Neg Urine Cocaine Screen Neg U Cannabinoids Screen Neg Serum Alcohol 04/19/18 04/19/18 16:22 16:22 WBC RBC Hgb Hct MCV MCH MCHC RDW Plt Count MPV Neut % (Auto) Lymph % (Auto) Parker % (Auto) Eos % (Auto) Baso % (Auto) Neut # (Auto) Lymph # (Auto) [place] # (Auto) Eos # (Auto) Baso # (Auto) WBC Differential Differential Comment Sodium 140 Potassium 3.8 Chloride 108 H Carbon Dioxide 24.7 Anion Gap 7 BUN 23 H Creatinine 1.23 H Estimated GFR 41 L Random Glucose 99 Calcium 8.9 Magnesium 2.3 Total Bilirubin 0.6 AST 22 ALT 24 Alkaline Phosphatase 50 Total Protein 8.0 Albumin 4.2 TSH 1.560 Urine Color Urine Clarity Urine pH Ur Specific [place] Urine Protein Urine Glucose (UA) Urine Ketones Urine Occult Blood Urine Nitrate Urine Bilirubin Urine Urobilinogen Ur Leukocyte Esterase Urine RBC Urine WBC Ur Squamous Epith Cells Urine Bacteria Urine Mucus Micro UA Comment Ur Microscopic Review Urine Culture Comments Salicylates Less than 1.7 L Urine Opiates Screen Acetaminophen Less than 2.0 L Ur Barbiturates Screen Ur Amphetamines Screen U Benzodiazepines Scrn Urine Cocaine Screen U Cannabinoids Screen Serum Alcohol Less than 3 - Imaging Impressions Head CT 04/19/18 16:37 CONCLUSION: 1. No acute findings in the brain. 2. 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 . Exam Vital signs: Vital Signs 04/19/18 15:49 04/19/18 19:58 04/19/18 22:30 Temperature 97.6 F 97.8 F 97.3 F L Pulse Rate 91 H 73 88 Respiratory Rate 18 14 18 Blood Pressure 164/78 H 154/73 H 157/75 H Pulse Oximetry 100 100 97 Intake & Output 04/19/18 04/20/18 04/20/18 18:59 06:59 18:59 Intake Total 240 / 240 240 / 240 Balance 240 / 240 240 / 240 Weight 68.946 kg 66.5 kg Intake: Oral 240 / 240 240 / 240 Other: # Voids 3 Weight On Admission 66.5 kg Mental Status Examination Appearance: Appropriate Consciousness: Alert Orientation: Person Motor Activity: Normal gait Speech: Unremarkable Language: Adequate Fund of Knowledge: Poor Attention and Concentration: Easily distracted, Inadequate Memory: Impaired Mood: Appropriate Thought Process & Associations: Logical, Disorganized Thought Content: Delusional, Other Hallucination Type: Auditory, Visual Delusion Type: None, Other (Talking to people not present, but firmly believes they are present) Suicidal Ideation: No Suicidal Plan: No Suicidal Intention: No Homicidal Ideation: No Homicidal Plan: No Homicidal Intention: No Insight: Poor Judgment: Poor Assessment and Plan - Assessment (1) Dementia Code(s): F03.90 - Unspecified dementia without behavioral disturbance Status: Acute (2) Altered mental status Code(s): R41.82 - Altered mental status, unspecified Status: Acute - Plan Plan: Estimated LOS: [3] days Involuntary started Hospitalist consult Review home medications and consult with sons regarding patient's past history and recent level of functioning Determine if patient is able to care for herself for most be transferred to [facility] Justification for Continued Inpatient Stay: Auditory visual hallucinations possibly associated with UTI unable to care for herself. At risk for decompensation at a lower level of care (1) Dementia Qualifiers: Dementia type: unspecified type (2) Altered mental status Qualifiers: Altered mental status type: unspecified Qualified Code(s): R41.82 - Altered mental status, unspecified
[2018-04-20] MEDS: Senna/Docusate Sodium 8.6/50 MG Tablet PO SCH ×2 (10:55→22:38)
[2018-04-20] MEDS: Nitrofurantoin Monohydrate-Macrocrystal 100 MG Capsule PO SCH ×2 (10:56→19:09)
--- NOTE | 2018-04-20 11:46 | P.CONIM ---
History of Present Illness Primary Care Provider: Carter Francois MD, PhD History of Present Illness: 83-year-old female with a history of CABG and generalized weakness presented to the ER under Urena act after her called the police due to confusion and she resisted the police officers. Emergency room workup included a urinalysis which was positive for urinary tract infection. She denies any symptoms of this at home, denies fevers, dysuria, incontinence, change to the odor. She does not recall any frequent or recurrent urinary tract infections. She reports that for a couple days leading up to her being Urena acted, she did see some visual abnormalities, figures that were bouncing around as though tethered to strings, her boyfriend denied seeing any of that. She is being observed in the psychiatric unit due to these hallucinations. She was started on nitrofurantoin and urine cultures are pending. She denies any current chest pain or arrhythmias. She denies any shortness of breath, cough, fever. She denies any nausea, vomiting, diarrhea. Review of Systems Review of Systems: all other systems reviewed are negative [facility] Medical History Medical History Coronary artery disease (Acute) H/O fracture of wrist (Acute) H/O peptic ulcer (Acute) H/O recurrent urinary tract infection (Acute) H/O: osteoarthritis (Acute) Hx of polymyalgia rheumatica (Acute) Hypertension (Acute) Wears glasses (Acute) Surgical History Surgical History History of appendectomy (Acute) History of cataract extraction with lens replacement (Acute) History of coronary artery stent placement (Acute) History of open reduction and internal fixation (ORIF) procedure (Acute) Hx of CABG (Acute) Hx of cataract surgery (Acute) Social History Social History Substance History: No History of Abuse Second Hand Smoke Exposure: No Smoking Status: Never smoker How Often Do You Have a Drink Containing Alcohol: Never Recent Travel in [facility] within the Last 8 Weeks: No Recent Out of Country Travel within the Last 8 Weeks: No Immunization History Tetanus Immunization: Unable to Assess Hx Influenza Vaccine This Season: Unable to Assess Medications and Allergies Allergies Allergy/AdvReac Type Severity Reaction Status Date / Time cephalexin Allergy Intermediate BLISTERS Unverified 10/18/16 11:59 penicillin G Allergy Intermediate BLISTERS, Unverified 10/18/16 11:59 SWELLING Cephalosporins Allergy Unknown UNKNOWN Verified 04/19/18 18:40 grapefruit Allergy Unknown STOMACH Unverified 10/18/16 11:59 ACHES Penicillins Allergy Unknown UNKNOWN Verified 04/19/18 18:40 pineapple Allergy Unknown CHAPPING Unverified 10/18/16 11:59 OF SKIN FROM CONTACT WITH PINEAPPLE hydromorphone AdvReac Unknown HALLUCINATI Unverified 10/18/16 11:59 ONS NICKEL Allergy Unknown CONTACT Uncoded 09/16/13 08:53 RASH FROM EXPOSURE TO NICKEL Home Medications Medication Instructions Recorded Confirmed Type enalapril maleate 2.5 mg PO BID 04/19/18 04/19/18 History isosorbide mononitrate 60 mg PO DAILY 04/19/18 04/19/18 History rosuvastatin [Crestor] 5 mg PO DAILY 04/19/18 04/19/18 History Active Medications: Active Medications Al Hydrox/Mg Hydrox/Simethicone (Mag-Al Plus Susp Liq) 30 ml PO Q6H PRN PRN Reason: DYSPEPSIA Al Hydroxide/Mg Hydroxide (Milk Of Magnesia Liq) 30 ml PO Q12H PRN PRN Reason: Mild Constipation Atorvastatin Calcium (Lipitor) 10 mg PO HS [facility] Bisacodyl (Dulcolax Supp) 10 mg RECTAL DAILY PRN PRN Reason: SEVERE CONSITIPATION Enalapril Maleate (Vasotec) 2.5 mg PO BID [facility] Hydroxyzine HCl (Atarax) 25 mg PO Q6H PRN PRN Reason: ANXIETY Isosorbide Mononitrate (Imdur) 60 mg PO DAILY [facility] Lactulose (Lactulose Liq) 30 ml PO DAILY PRN PRN Reason: SEVERE CONSITIPATION Nitrofurantoin Macrocrystals ([facility]robid) [facility] Stop: 04/24/18 18:29 Last Admin: 04/20/18 10:56 Dose: 100 mg Perphenazine (Trilafon) 4 mg PO BID [facility] Last Admin: 04/20/18 10:57 Dose: 4 mg Senna/Docusate Sodium (Reyna-Colace) 1 tab PO BID [facility] Last Admin: 04/20/18 10:55 Dose: 1 tab Sennosides (Senokot) 17.2 mg PO Q12H PRN PRN Reason: Moderate Constipation Physical Exam Vital signs: Vital Signs 04/19/18 15:49 04/19/18 19:58 04/19/18 22:30 Temperature 97.6 F 97.8 F 97.3 F L Pulse Rate 91 H 73 88 Respiratory Rate 18 14 18 Blood Pressure 164/78 H 154/73 H 157/75 H Pulse Oximetry 100 100 97 Intake & Output 04/19/18 04/20/18 04/20/18 18:59 06:59 18:59 Intake Total 240 / 240 240 / 240 Balance 240 / 240 240 / 240 Weight 68.946 kg 66.5 kg Intake: Oral 240 / 240 240 / 240 Other: # Voids 3 Weight On Admission 66.5 kg Narrative: GENERAL: AAOx2, no acute distress, adequate nutrition, elderly, using walker SKIN: Warm and dry, no rashes. HEAD: Atraumatic. Normocephalic. EYES: Pupils equal, round, reactive to light. No scleral icterus. No injection or drainage. ENT: No nasal bleeding or discharge. Moist mucous membranes. Nonerythematous oropharynx. NECK: Trachea midline. No JVD. Thyroid size within normal limits. CARDIOVASCULAR: Regular rate and rhythm. No murmur, no gallops, no rubs. RESPIRATORY: Clear and equal to auscultation bilaterally. No crackles, no wheezes. No accessory muscle use. GASTROINTESTINAL: Abdomen soft, non-tender, nondistended, normal active bowel sounds. Hepatic and splenic margins not palpable. MUSCULOSKELETAL: Extremities without clubbing or cyanosis. No obvious deformities. No edema. NEUROLOGICAL: Awake and alert. No obvious cranial nerve deficits. Motor grossly within normal limits. No focal deficits. Five out of 5 muscle strength in the arms and legs. Normal speech. PSYCHIATRIC: Somewhat confused, a little bit tangential Results Labs CBC & Chem 7: 04/19/18 16:22 04/19/18 16:[address] 04/19/18 16:37 CONCLUSION: 1. No acute findings in the brain. 2. 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 . ABG Impressions Head CT 04/19/18 16:37 CONCLUSION: 1. No acute findings in the brain. 2. 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 . Assessment and Plan (1) Dementia: Code(s): F03.90 - Unspecified dementia without behavioral disturbance Status: Acute (2) Altered mental status: Code(s): R41.82 - Altered mental status, unspecified Status: Acute Plan Urinary tract infection Agree with the selection of nitrofurantoin Culture results pending for sensitivities Continue with nitrofurantoin, adjust if sensitivities show a better selection Dementia with psychosis Dementia fits her affect, the psychosis may be related to urinary tract infection She is currently under observation and treatment at our [facility] [place] Continue primary management under psychiatry Watch for improvement with UTI treatment h/o CAD, CABG Currently asymptomatic, follow-up as outpatient Continue enalapril, Lipitor, isosorbide DVT prophylaxis Patient is ambulatory with a walker _ (1) Dementia Qualifiers: Dementia type: unspecified type Alzheimer's disease onset: Dementia behavioral disturbance: (2) Altered mental status Qualifiers: Altered mental status type: unspecified Coma depth: Coma timing: Qualified Code(s): R41.82 - Altered mental status, unspecified
[2018-04-20] MEDS: Isosorbide Mononitrate 60 MG ER 24HR Tablet (Imdur) PO SCH (13:51)
--- NOTE | 2018-04-20 14:21 | P.CONPSY ---
Provisional Diagnosis Admission Date: April 19, 2018 21:36 [place].: Dementia with psychosis History of Present Illness Service: Psychiatry Primary Care Provider: Carter Francois MD, PhD History of Present Illness: Patient is a 83-year-old black female who is brought in a Urena act that described the patient is talking to people who were not present, being confused and felt to be unable to care for herself. The patient was said to be being treated for UTI but was not taking her medication. On admission to the ED there is no clear evidence of delirium but the patient was disoriented as to time place and situation. Patient today is oriented only to person. Patient does endorse having had the experience of talking to people who others did not believe for her in the room. Patient is not aware of her medications and unable to comply. This patient is a 83 years old female brought to the ED on a Urena act initiated by civil lawyer. The police stated in the Urena Act that when he arrived that the patient home she was rambling incoherently rent and talking to persons that were not presents and that she was expressing paranoid thoughts. The police stated that he Urena acted the patient because he felt that she were unable to care for herself safely. The patient presents calm and not displaying any behavioral disturbances or agitation. The patient the patient is confused and she thinks that he is still at her home. She is unable to give an account of the events leading up to her being Urena acted. I spoke to the patient's daughter on the phone and she reported that her mother is diagnosed with early stage dementia. A live-in payroll and benefits analyst reported a drastic deterioration in her mental status in the last 3 days. The daughter stated that she patient was diagnosed with a urinary tract infection but the patient have not been taking the medications. The patient does not appears to be responding to any hallucinations and no self-harm gestures has been observed PMFSH - History History Provided By: Medical Record - Medical History Medical History: Medical History (Last Reviewed 04/20/18 @ 11:41 by Vimal Joyce MD) Coronary artery disease H/O fracture of wrist H/O peptic ulcer H/O recurrent urinary tract infection H/O: osteoarthritis Hx of polymyalgia rheumatica Hypertension Wears glasses - Surgical History Surgical History: Surgical History (Last Reviewed 04/20/18 @ 11:41 by Vimal Joyce MD) History of appendectomy History of cataract extraction with lens replacement History of coronary artery stent placement History of open reduction and internal fixation (ORIF) procedure Hx of CABG Hx of cataract surgery - Tobacco History Second Hand Smoke Exposure: No Smoking Status: Never smoker - Alcohol History How Often Do You Have a Drink Containing Alcohol: Never - Substance Use History Substance History: No History of Abuse - Travel History Recent Travel in the [place] Within the Last 8 Weeks: No Recent Travel Out of the Country Within the Last 8 Weeks: No - Immunization History Tetanus Immunization: Unable to Assess Hx Influenza Vaccine This Season: Unable to Assess Medications and Allergies Active Medications: Active Medications Al Hydrox/Mg Hydrox/Simethicone (Mag-Al Plus Susp Liq) 30 ml PO Q6H PRN PRN Reason: DYSPEPSIA Al Hydroxide/Mg Hydroxide (Milk Of Magnesia Liq) 30 ml PO Q12H PRN PRN Reason: Mild Constipation Atorvastatin Calcium (Lipitor) 10 mg PO HS [facility] Bisacodyl (Dulcolax Supp) 10 mg RECTAL DAILY PRN PRN Reason: SEVERE CONSITIPATION Enalapril Maleate (Vasotec) 2.5 mg PO BID [facility] Last Admin: 04/20/18 13:52 Dose: 2.5 mg Hydroxyzine HCl (Atarax) 25 mg PO Q6H PRN PRN Reason: ANXIETY Isosorbide Mononitrate (Imdur) 60 mg PO DAILY [facility] Last Admin: 04/20/18 13:51 Dose: 60 mg Lactulose (Lactulose Liq) 30 ml PO DAILY PRN PRN Reason: SEVERE CONSITIPATION Nitrofurantoin Macrocrystals ([facility]robid) [facility] Stop: 04/24/18 18:29 Last Admin: 04/20/18 10:56 Dose: 100 mg Perphenazine (Trilafon) 4 mg PO BID [facility] Last Admin: 04/20/18 10:57 Dose: 4 mg Senna/Docusate Sodium (Reyna-Colace) 1 tab PO BID [facility] Last Admin: 04/20/18 10:55 Dose: 1 tab Sennosides (Senokot) 17.2 mg PO Q12H PRN PRN Reason: Moderate Constipation Allergies Allergy/AdvReac Type Severity Reaction Status Date / Time cephalexin Allergy Intermediate BLISTERS Unverified 10/18/16 11:59 penicillin G Allergy Intermediate BLISTERS, Unverified 10/18/16 11:59 SWELLING Cephalosporins Allergy Unknown UNKNOWN Verified 04/19/18 18:40 grapefruit Allergy Unknown STOMACH Unverified 10/18/16 11:59 ACHES Penicillins Allergy Unknown UNKNOWN Verified 04/19/18 18:40 pineapple Allergy Unknown CHAPPING Unverified 10/18/16 11:59 OF SKIN FROM CONTACT WITH PINEAPPLE hydromorphone AdvReac Unknown HALLUCINATI Unverified 10/18/16 11:59 ONS NICKEL Allergy Unknown CONTACT Uncoded 09/16/13 08:53 RASH FROM EXPOSURE TO NICKEL Home Medications Medication Instructions Recorded Confirmed Type enalapril maleate 2.5 mg PO BID 04/19/18 04/19/18 History isosorbide mononitrate 60 mg PO DAILY 04/19/18 04/19/18 History rosuvastatin [Crestor] 5 mg PO DAILY 04/19/18 04/19/18 History Exam Vital signs: Vital Signs 04/19/18 15:49 04/19/18 19:58 04/19/18 22:30 Temperature 97.6 F 97.8 F 97.3 F L Pulse Rate 91 H 73 88 Respiratory Rate 18 14 18 Blood Pressure 164/78 H 154/73 H 157/75 H Pulse Oximetry 100 100 97 Intake & Output 04/19/18 04/20/18 04/20/18 18:59 06:59 18:59 Intake Total 240 / 240 480 / 480 Balance 240 / 240 480 / 480 Weight 68.946 kg 66.5 kg Intake: Oral 240 / 240 480 / 480 Other: # Voids 3 Weight On Admission 66.5 kg Mental Status Examination Appearance: Appropriate Consciousness: Alert Orientation: Person Motor Activity: Normal gait Speech: Unremarkable Language: Adequate Fund of Knowledge: Poor Attention and Concentration: Easily distracted, Inadequate Memory: Impaired Mood: Appropriate Thought Process & Associations: Logical, Disorganized Thought Content: Delusional, Other Hallucination Type: Auditory, Visual Delusion Type: None, Other (Talking to people not present, but firmly believes they are present) Suicidal Ideation: No Suicidal Plan: No Suicidal Intention: No Homicidal Ideation: No Homicidal Plan: No Homicidal Intention: No Insight: Poor Judgment: Poor Assessment and Plan - Assessment (1) Dementia Code(s): F03.90 - Unspecified dementia without behavioral disturbance Status: Acute (2) Altered mental status Code(s): R41.82 - Altered mental status, unspecified Status: Acute - Plan Plan: I have seen and examined this patient, reviewed documentation, I agree and concur with assessment and plan. Consult appreciated. Justification for Continued Inpatient Stay: Continue psychiatric admission (1) Dementia Qualifiers: Dementia type: unspecified type (2) Altered mental status Qualifiers: Altered mental status type: unspecified Qualified Code(s): R41.82 - Altered mental status, unspecified
--- NOTE | 2018-04-20 17:35 | P.PNIM ---
Mrs. cochran had a syncopal episode at dinnertime. Blood sugar was 177, systolic blood pressure was 102. She had no postictal phase essentially ruling out seizure. She only has 2 new medications that could have contributed on his nitrofurantoin which is not well known to cause syncopal episodes. The other is perphenazine which has a slurry of possible side effects that raises suspicion of involvement with her symptoms. I am holding that medication for now. Of ordered a syncopal workup including echocardiogram and carotid ultrasound. We will follow her clinically. Transfer to [facility] for closer monitoring.
--- NOTE | 2018-04-20 20:02 | US ---
EXAM DATE: 04/20/2018 7:56 PM EST AGE/SEX: 83 years / Female INDICATIONS: Syncope. CLINICAL DATA: This is the patient's initial encounter. Patient reports that signs and symptoms have been present for 1 day and indicates a pain score of 0/10. MEDICAL/SURGICAL HISTORY: Hypertension. Osteoarthritis. CAD. UTI. Polymyalgia rheumatic. Appe ndectomy. CABG. Coronary artery stent placement. COMPARISON: No prior exams available for comparison. VELOCITY PARAMETERS: ICA/CCA Ratio: Right 0.84 , Left 0.94 ICA: Right 107 cm/sec, Left 107 cm/sec CCA: Right 128 cm/sec, Left 114 cm/sec ECA: Right 165 cm/sec, Left 147 cm/sec Vertebral: Right 45 cm/sec antegrade, Left 78 cm/sec antegrade FINDINGS: Right Carotid: Minimal arteriosclerotic plaque is visualized.The waveforms are within normal limits. Left Carotid: Minimal arteriosclerotic plaque is visualized. The waveforms are within normal limits. Other: None. CONCLUSION: Minimal plaque at the carotid bulb regions without significant stenosis. Electronically signed by: Gilberto Meyer MD Board Certified Radiologist 04/20/2018 8:01 PM EST
[2018-04-21] MEDS: Isosorbide Mononitrate 60 MG ER 24HR Tablet (Imdur) PO SCH (08:07)
[2018-04-21] MEDS: Senna/Docusate Sodium 8.6/50 MG Tablet PO SCH ×2 (08:07→21:10)
[2018-04-21] MEDS: Nitrofurantoin Monohydrate-Macrocrystal 100 MG Capsule PO SCH ×2 (08:07→20:26)
--- NOTE | 2018-04-21 12:22 | P.PNIM ---
Subjective Interval history: Follow-up visit urinary tract infection, syncope Patient seen and examined in her room. She confabulates. RN at bedside, no further episodes of syncope. Patient denies chest pain, shortness of breath, dizziness, lightheadedness, cough, fever or chills. Physical Exam Vital signs: Vital Signs 04/20/18 16:00 04/20/18 18:00 04/21/18 06:00 Temperature 93.8 F L 98.9 F Pulse Rate 64 90 87 Respiratory Rate 16 8 L 18 Blood Pressure 109/63 102/59 L 156/67 H Pulse Oximetry 98 95 97 Intake & Output 04/20/18 04/21/18 04/21/18 18:59 06:59 18:59 Intake Total 480 / 480 0 / 0 Balance 480 / 480 0 / 0 Intake: Oral 480 / 480 0 / 0 Oral Supplement 0 / 0 Other: # Voids 2 Date of Last Bowel Movement 04/20/18 04/20/18 # Bowel Movements 1 0 Narrative: GENERAL: AAOx2, no acute distress, adequate nutrition, elderly, using walker SKIN: Warm and dry, no rashes. HEAD: Atraumatic. Normocephalic. EYES: Pupils equal, round, reactive to light. No scleral icterus. No injection or drainage. ENT: No nasal bleeding or discharge. Moist mucous membranes. Nonerythematous oropharynx. NECK: Trachea midline. No JVD. Thyroid size within normal limits. CARDIOVASCULAR: Regular rate and rhythm. No murmur, no gallops, no rubs. RESPIRATORY: Clear and equal to auscultation bilaterally. No crackles, no wheezes. No accessory muscle use. GASTROINTESTINAL: Abdomen soft, non-tender, nondistended, normal active bowel sounds. Hepatic and splenic margins not palpable. MUSCULOSKELETAL: Extremities without clubbing or cyanosis. No obvious deformities. No edema. NEUROLOGICAL: Awake and alert. No obvious cranial nerve deficits. Motor grossly within normal limits. No focal deficits. Five out of 5 muscle strength in the arms and legs. Normal speech. PSYCHIATRIC: Somewhat confused, a little bit tangential Results Labs CBC & Chem 7: 04/19/18 16:22 04/19/18 16:22 Labs: Microbiology 04/19/18 16:09 Clean Catch Urine Urine Culture - Final Proteus mirabilis Imaging Imaging: Impressions Carotid Doppler Study 04/20/18 00:00 CONCLUSION: Minimal plaque at the carotid bulb regions without significant stenosis. Assessment and Plan (1) Dementia: Code(s): F03.90 - Unspecified dementia without behavioral disturbance Status: Acute (2) Altered mental status: Code(s): R41.82 - Altered mental status, unspecified Status: Acute Plan Urinary tract infection -urine culture with proteus mirabilis -continue Macrobid Dementia with psychosis -Dementia fits her affect, the psychosis may be related to urinary tract infection -currently under observation and treatment at our [facility] [place] -Continue primary management under psychiatry -Watch for improvement with UTI treatment h/o CAD, CABG -Currently asymptomatic, follow-up as outpatient -Continue enalapril, Lipitor, isosorbide DVT prophylaxis: Patient is ambulatory with a walker Progress Note: Quality VTE Deep Vein Thrombosis/Pulmonary Embolism Present on Admission: No _ (1) Dementia Qualifiers: Alzheimer's disease onset: Dementia behavioral disturbance: Dementia type : unspecified type (2) Altered mental status Qualifiers: Altered mental status type: unspecified Coma depth: Coma timing: Qualified Code(s): R41.82 - Altered mental status, unspecified
--- NOTE | 2018-04-21 13:09 | ECHRPT ---
Indication: SYNCOPE CONCLUSIONS Wall thickness is normal. Normal left ventricular size. The left ventricular systolic function is normal with an estimated ejection fraction in the range of 60-65%. There was limited left ventricular wall motion assessment due to poor endocardial visualization. [id number] mitral valve regurgitation. There is trace tricuspid valve regurgitation. The estimated pulmonary arterial pressure is 30 mmHg. Mild aortic valve sclerosis is present. Mild aortic valve regurgitation. BP: / HR: Rhythm: Sinus Technical Quality:Fair FINDINGS LEFT VENTRICLE Wall thickness is normal. Normal left ventricular size. The left ventricular systolic function is normal with an estimated ejection fraction in the range of 60-65%. There was limited left ventricular wall motion assessment due to poor endocardial visualization. RIGHT VENTRICLE Normal right ventricular size and systolic function. LEFT ATRIUM The left atrial size is normal. RIGHT ATRIUM The right atrial size is normal. ATRIAL SEPTUM No atrial level shunt is demonstrated by color flow Doppler interrogation. AORTA The aortic root and proximal ascending aorta are normal in size on limited imaging. MITRAL VALVE [id number] mitral valve regurgitation. AORTIC VALVE Mild aortic valve sclerosis is present. Mild aortic valve regurgitation. TRICUSPID VALVE There is trace tricuspid valve regurgitation. The estimated pulmonary arterial pressure is 30 mmHg. PULMONARY VALVE No pulmonary valve regurgitation or stenosis. VESSELS The inferior vena cava is normal in size. PERICARDIUM No pericardial effusion. Filiberto Apodaca MD (Electronically Signed) Final Date:21 April 2018 13:07
--- NOTE | 2018-04-21 18:54 | P.PNPSY ---
Subjective Chief Complaint: Auditory and possible visual hallucinations. Confusion and disorientation Remarks: Reviewed electronic medical records and discussed case with staff. Follow-up was conducted in the hallway where patient was found adjusting a blanket in a chair. She reports that she feels "fine". When asked how she slept she states , "exceptionally good". She reports that her appetite has been good as well. When asked to identify her location she responds, "between and ". She remains pleasantly confused. Mental Status Examination Appearance: Appropriate Consciousness: Alert Orientation: Person Motor Activity: Normal gait Speech: Unremarkable Language: Adequate Fund of Knowledge: Poor Attention and Concentration: Easily distracted, Inadequate Memory: Impaired Mood: Appropriate Thought Process & Associations: Logical, Disorganized Thought Content: Delusional, Other Hallucination Type: Auditory, Visual Delusion Type: None, Other (Talking to people not present, but firmly believes they are present) Suicidal Ideation: No Suicidal Plan: No Suicidal Intention: No Homicidal Ideation: No Homicidal Plan: No Homicidal Intention: No Insight: Poor Judgment: Poor Assessment and Plan - Assessment (1) Dementia Code(s): F03.90 - Unspecified dementia without behavioral disturbance Status: Acute - Plan Plan: Patient will be reevaluated by the attending psychiatrist. Continue with current treatment plan. Justification for Continued Inpatient Stay: Moving this patient to a less restrictive environment would likely result in decompensation. (1) Dementia Qualifiers: Dementia type: unspecified type
[2018-04-22] MEDS: Senna/Docusate Sodium 8.6/50 MG Tablet PO SCH ×2 (08:29→21:05)
[2018-04-22] MEDS: Nitrofurantoin Monohydrate-Macrocrystal 100 MG Capsule PO SCH ×2 (08:29→19:17)
[2018-04-22] MEDS: Isosorbide Mononitrate 60 MG ER 24HR Tablet (Imdur) PO SCH (08:29)
--- NOTE | 2018-04-22 12:51 | P.PNIM ---
Subjective Interval history: Follow-up visit syncope, urinary tract infection Patient seen and examined while sitting in a chair in her room. Confabulates. No acute distress noted. No acute events overnight. No further episodes of syncope. Unable to assess if patient is feeling dizzy or lightheaded. Physical Exam Vital signs: Vital Signs 04/21/18 18:34 04/22/18 06:00 Temperature 99.3 F 98.6 F Pulse Rate 110 H 98 H Respiratory Rate 20 17 Blood Pressure 111/61 131/60 Pulse Oximetry 96 94 L Intake & Output 04/21/18 04/22/18 04/22/18 18:59 06:59 18:59 Intake Total 980 / 980 Balance 980 / 980 Intake: Oral 980 / 980 Other: # Voids 3 Date of Last Bowel Movement 04/20/18 Narrative: GENERAL: AAOx2, no acute distress, adequate nutrition, elderly, using walker SKIN: Warm and dry, no rashes. HEAD: Atraumatic. Normocephalic. EYES: Pupils equal, round, reactive to light. No scleral icterus. No injection or drainage. ENT: No nasal bleeding or discharge. Moist mucous membranes. Nonerythematous oropharynx. NECK: Trachea midline. No JVD. Thyroid size within normal limits. CARDIOVASCULAR: Regular rate and rhythm. No murmur, no gallops, no rubs. RESPIRATORY: Clear and equal to auscultation bilaterally. No crackles, no wheezes. No accessory muscle use. GASTROINTESTINAL: Abdomen soft, non-tender, nondistended, normal active bowel sounds. Hepatic and splenic margins not palpable. MUSCULOSKELETAL: Extremities without clubbing or cyanosis. No obvious deformities. No edema. NEUROLOGICAL: Awake and alert. No obvious cranial nerve deficits. Motor grossly within normal limits. No focal deficits. Five out of 5 muscle strength in the arms and legs. Normal speech. PSYCHIATRIC: Somewhat confused, a little bit tangential Results Labs CBC & Chem 7: 04/19/18 16:22 04/19/18 16:22 Labs: Microbiology 04/19/18 16:09 Clean Catch Urine Urine Culture - Final Proteus mirabilis Assessment and Plan (1) Dementia: Code(s): F03.90 - Unspecified dementia without behavioral disturbance Status: Acute Plan 83-year-old female with a history of CABG and generalized weakness presented to the ER under Urena act after her called the police due to confusion and she resisted the police officers. Emergency room workup included a urinalysis which was positive for urinary tract infection. Urinary tract infection -urine culture with proteus mirabilis -continue Macrobid -repeat UA Dementia with psychosis -Dementia fits her affect, the psychosis may be related to urinary tract infection -currently under observation and treatment at [facility] -Continue primary management under psychiatry -Watch for improvement with UTI treatment h/o CAD, CABG -Currently asymptomatic, follow-up as outpatient -Continue enalapril, Lipitor, isosorbide DVT prophylaxis: Patient is ambulatory with a walker Discussed with: RN, patient, supervising MD Code Status: Full Progress Note: Quality VTE Deep Vein Thrombosis/Pulmonary Embolism Present on Admission: No _ (1) Dementia Qualifiers: Dementia type: unspecified type Alzheimer's disease onset: Dementia behavioral disturbance:
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
[2018-04-22 18:50] LABS: Calcium 9.2 mg/dL (8.5-10.1); Carbon Dioxide 19.5 meq/L (21.0-32.0); Potassium 4.2 meq/L (3.5-5.1)
[2018-04-22 20:15] LABS: Baso % (Auto) 0.4 % (0.0-2.0); Eos % (Auto) 0.3 % (0.0-4.0); Hematocrit 36.5 % (35.0-46.0); Hemoglobin 12.2 gm/dL (11.6-15.3); Lymph # (Auto) 1.6 th/mm3 (1.0-4.8); Lymph % (Auto) 20.9 % (9.0-44.0); Mean Corpuscular HGB Conc 33.5 % (32.0-36.0); Mean Corpuscular Hemoglobin 31.7 pg (27.0-34.0); Mean Corpuscular Volume 94.7 fL (80.0-100.0); Mean Platelet Volume 9.3 fL (7.0-11.0); Mono # (Auto) 0.7 th/mm3 (0.0-0.9); Mono % (Auto) 9.9 % (0.0-8.0); Neut # (Auto) 5.1 th/mm3 (1.8-7.7); Neut % (Auto) 68.5 % (16.0-70.0); Platelet Count 265 th/mm3 (150-450); Red Blood Count 3.85 mil/mm3 (4.00-5.30); Red Cell Distribution Width 13.4 % (11.6-17.2); White Blood Count 7.4 th/mm3 (4.0-11.0)
[2018-04-23] MEDS ORDERED: Sod Chloride 0.9% Inj 500 ML IV.CONT SCH (08:07)
[2018-04-23] MEDS: Nitrofurantoin Monohydrate-Macrocrystal 100 MG Capsule PO SCH ×2 (08:41→20:36)
[2018-04-23] MEDS: Senna/Docusate Sodium 8.6/50 MG Tablet PO SCH ×2 (08:41→20:36)
[2018-04-23] MEDS: Isosorbide Mononitrate 60 MG ER 24HR Tablet (Imdur) PO SCH (08:41)
--- NOTE | 2018-04-23 11:07 | P.PNPSY ---
Subjective Chief Complaint: Auditory and possible visual hallucinations. Confusion and disorientation Remarks: Subjective: Patient apparently still having episodes of delirium in which she becomes aggressive. Today she woke up piece of plastic guard rail and requiring an ETO of 5 mg Zyprexa. Medicine is following the patient and discontinued the Macrobid tract infection. They also are recommending some fluids which might help with the episodes of delirium if indeed she has some electrolyte fluid imbalances. Patient is in good humor in the seclusion room when I saw her today and she immediately seemed to improve although she was laughing and making no sense. It is not possible to discover what is the subject of her laughter. With some difficulty she was escorted from seclusion back to her room and given her injection of Zyprexa. She has had episodes of being violent alternating with sweetness and pleasant, but always disorganized and rambling. Review of Systems ROS patient is unable to respond directly to questions on the ROS. Mental Status Examination Appearance: Appropriate Consciousness: Alert Orientation: Person Motor Activity: Normal gait Speech: Unremarkable Language: Adequate Fund of Knowledge: Poor Attention and Concentration: Easily distracted, Inadequate Memory: Impaired Mood: Appropriate Affect: Labile Thought Process & Associations: Disorganized Thought Content: Hallucinations, Delusional, Other (Laughing) Hallucination Type: Auditory, Visual Delusion Type: None, Other (Talking to people not present, but firmly believes they are present) Suicidal Ideation: No Suicidal Plan: No Suicidal Intention: No Homicidal Ideation: No Homicidal Plan: No Homicidal Intention: No Insight: Poor Judgment: Poor Assessment and Plan - Assessment (1) Dementia Code(s): F03.90 - Unspecified dementia without behavioral disturbance Status: Acute (2) Altered mental status Code(s): R41.82 - Altered mental status, unspecified Status: Acute - Plan Plan: Patient will be reevaluated by the attending psychiatrist. Continue with current treatment plan. Justification for Continued Inpatient Stay: Patient at risk for decompensation at a lower level of care (1) Dementia Qualifiers: Dementia type: unspecified type (2) Altered mental status Qualifiers: Altered mental status type: unspecified Qualified Code(s): R41.82 - Altered mental status, unspecified
[2018-04-23 12:43] LABS: Calcium 9.3 mg/dL (8.5-10.1); Carbon Dioxide 21.5 meq/L (21.0-32.0); Potassium 4.1 meq/L (3.5-5.1)
--- NOTE | 2018-04-23 13:10 | P.PNIM ---
Subjective Interval history: Follow-up visit acute kidney injury, urinary tract infection Patient resting in bed. She is calm at time of evaluation. No complaints voiced. Denies suprapubic/flank pain, dysuria, urgency or frequency. Patient continues with confabulation. Physical Exam Vital signs: Vital Signs 04/22/18 18:00 04/23/18 06:36 Temperature 99.4 F 97.8 F Pulse Rate 113 H 99 H Respiratory Rate 22 18 Blood Pressure 123/61 154/70 H Pulse Oximetry 95 94 L Intake & Output 04/22/18 04/23/18 04/23/18 18:59 06:59 18:59 Intake Total 480 / 480 120 / 120 Balance 480 / 480 120 / 120 Intake: Oral 480 / 480 120 / 120 Other: # Voids 3 Date of Last Bowel Movement 04/20/18 Narrative: GENERAL: AAOx2, no acute distress, adequate nutrition, elderly, using walker SKIN: Warm and dry, no rashes. HEAD: Atraumatic. Normocephalic. EYES: Pupils equal, round, reactive to light. No scleral icterus. No injection or drainage. ENT: No nasal bleeding or discharge. Moist mucous membranes. Nonerythematous oropharynx. NECK: Trachea midline. No JVD. Thyroid size within normal limits. CARDIOVASCULAR: Regular rate and rhythm. No murmur, no gallops, no rubs. RESPIRATORY: Clear and equal to auscultation bilaterally. No crackles, no wheezes. No accessory muscle use. GASTROINTESTINAL: Abdomen soft, non-tender, nondistended, normal active bowel sounds. Hepatic and splenic margins not palpable. MUSCULOSKELETAL: Extremities without clubbing or cyanosis. No obvious deformities. No edema. NEUROLOGICAL: Awake and alert. No obvious cranial nerve deficits. Motor grossly within normal limits. No focal deficits. Five out of 5 muscle strength in the arms and legs. Normal speech. PSYCHIATRIC: Somewhat confused, a little bit tangential Results Labs CBC & Chem 7: 04/22/18 18:14 04/23/18 11:43 Assessment and Plan (1) Dementia with behavioral disturbance: Code(s): F03.91 - Unspecified dementia with behavioral disturbance Status: Acute (2) UTI (urinary tract infection): Code(s): N39.0 - Urinary tract infection, site not specified Status: Acute Plan 83-year-old female with a history of CABG and generalized weakness presented to the ER under Urena act after her called the police due to confusion and she resisted the police officers. Emergency room workup included a urinalysis which was positive for urinary tract infection. Urinary tract infection -urine culture with proteus mirabilis -continue Macrobid -repeat UA pending Acute kidney injury likely superimposed on CKD -unknown baseline, no prior records available for review -improving -gentle hydration, encourage PO fluid intake -monitor labs Dementia with psychosis -Dementia fits her affect, the psychosis may be related to urinary tract infection -currently under observation and treatment at our [facility] -Continue primary management under psychiatry -Watch for improvement with UTI treatment h/o CAD, CABG -currently asymptomatic, follow-up as outpatient -continue enalapril, Lipitor, isosorbide DVT prophylaxis: Patient is ambulatory with a walker Discussed with: RN, patient, supervising MD Code Status: Full Discharge Planning: per primary team Progress Note: Quality VTE Deep Vein Thrombosis/Pulmonary Embolism Present on Admission: No _ (1) UTI (urinary tract infection) Qualifiers: Encounter type: Hematuria presence: without hematuria Indwelling urinary catheter type: Urinary tract infection type: site unspecified Qualified Code( s): N39.0 - Urinary tract infection, site not specified (2) Dementia with behavioral disturbance Qualifiers: Alzheimer's disease onset: Dementia type:
[2018-04-23 19:17] LABS: Bacteria,Urine Rare /hpf; Bilirubin,Urine Negative (Negative); Clarity,Urine Hazy (Clear); Color,Urine Yellow (Yellw/Straw); Glucose,Urine (UA) Negative (Negative); Hyaline Casts,Urine 7 /lpf (0-3); Leukocyte Esterase,Urine Trace (Negative); Mucus,Urine Few /lpf (Occasional); Nitrite,Urine Negative (Negative); Specific Gravity,Urine 1.016 (1.002-1.035); Squamous Epithelial Cell,Urine <1 /hpf (0-5)
[2018-04-23 23:40] LABS: Bacteria,Urine Rare /hpf; Bilirubin,Urine Negative (Negative); Clarity,Urine Hazy (Clear); Color,Urine Yellow (Yellw/Straw); Glucose,Urine (UA) Negative (Negative); Hyaline Casts,Urine 14 /lpf (0-3); Leukocyte Esterase,Urine Trace (Negative); Mucus,Urine Few /lpf (Occasional); Nitrite,Urine Negative (Negative); Specific Gravity,Urine 1.016 (1.002-1.035); Squamous Epithelial Cell,Urine <1 /hpf (0-5)
[2018-04-24 07:52] LABS: Calcium 8.6 mg/dL (8.5-10.1)
[2018-04-24] MEDS: Isosorbide Mononitrate 60 MG ER 24HR Tablet (Imdur) PO SCH (08:45)
[2018-04-24] MEDS: Nitrofurantoin Monohydrate-Macrocrystal 100 MG Capsule PO SCH ×2 (08:45→17:57)
--- NOTE | 2018-04-24 09:32 | P.PNIM ---
Subjective Interval history: Follow-up visit for UTI. Spoke with nurse who reports patient received two ETO's yesterday, slept well, woke up twice with some confusion over getting into bed but realized she was already in bed. No other acute events reported. Patient is seen ambulating in her room and in the bathroom. I introduce myself and patient swiftly shuts bathroom door refusing further interview or exam. Physical Exam Vital signs: Vital Signs 04/24/18 06:00 Temperature 98.8 F Pulse Rate 68 Respiratory Rate 15 Blood Pressure 138/68 Pulse Oximetry 96 Intake & Output 04/23/18 04/24/18 04/24/18 18:59 06:59 18:59 Intake Total 720 / 720 240 / 240 600 / 600 Balance 720 / 720 240 / 240 600 / 600 Intake: Oral 720 / 720 240 / 240 600 / 600 Other: # Voids 2 1 Narrative: Exam limited 04/07 patient cooperation GENERAL: Well developed/nourished elderly female who appears to be in no acute distress. SKIN:No rashes. HEAD: Atraumatic. Normocephalic. NECK: Trachea midline. MUSCULOSKELETAL: Extremities without clubbing or cyanosis. No obvious deformities. No edema. NEUROLOGICAL: Awake and alert. No obvious cranial nerve deficits. Motor grossly within normal limits. Normal speech. PSYCHIATRIC: Somewhat confused, uncooperative with interview and exam today. Results Labs CBC & Chem 7: 04/22/18 18:14 04/24/18 06:35 Assessment and Plan (1) Dementia with behavioral disturbance: Code(s): F03.91 - Unspecified dementia with behavioral disturbance Status: Acute (2) UTI (urinary tract infection): Code(s): N39.0 - Urinary tract infection, site not specified Status: Acute Plan 83-year-old female with a history of CABG and generalized weakness presented to the ER under Urena act after her called the police due to confusion and she resisted the police officers. Emergency room workup included a urinalysis which was positive for urinary tract infection. Urinary tract infection -urine culture with proteus mirabilis -continue Macrobid to complete today -Repeat UA with no growth after 24hrs Acute kidney injury likely superimposed on CKD -unknown baseline, no prior records available for review -improved -Continue to encourage PO fluid intake -monitor labs Dementia with psychosis -Dementia fits her affect, the psychosis may be related to urinary tract infection -currently under observation and treatment at our [facility] -Continue primary management under psychiatry -Repeat UA with no growth after 24hrs. Syncopal episode 04/20 -? related to perphenazine, previously on hold now resumed 04/24 -Carotid US negative, echo with no acute findings to explain syncopal episode -No further syncopal episodes reported h/o CAD, CABG -currently asymptomatic, follow-up as outpatient -continue enalapril, Lipitor, isosorbide DVT prophylaxis: Patient is ambulatory with a walker Code Status: Full code Discussed Condition With: Patient, nurse Discharge Planning: Disposition per psychiatry. Progress Note: Quality VTE Deep Vein Thrombosis/Pulmonary Embolism Present on Admission: No _ (1) UTI (urinary tract infection) Qualifiers: Encounter type: Hematuria presence: without hematuria Indwelling urinary catheter type: Urinary tract infection type: site unspecified Qualified Code( s): N39.0 - Urinary tract infection, site not specified (2) Dementia with behavioral disturbance Qualifiers: Alzheimer's disease onset: Dementia type:
[2018-04-24] MEDS: Senna/Docusate Sodium 8.6/50 MG Tablet PO SCH ×2 (09:54→20:42)
--- NOTE | 2018-04-24 10:30 | P.PNPSY ---
Subjective Chief Complaint: Auditory and possible visual hallucinations. Confusion and disorientation Remarks: Subjective: Patient appears more controlled today there has been problems with giving her her medicine. She has been spitting it out and 1 of the consultants on the of this month put the perphenazine on hold without comment in the consult note. It is not clear from reading the consult that there was reason for this and it was not discovered until nursing may be aware of it today. Medication was resumed. The patient's daughter has power of assistant attorney general and requested an interview which was completed by phone. Her issues are will her mother be safe to return home if a member of the family is present and can see to her needs are will the patient require a fpc facility or an AL F. At this point the patient UTI and her fluid balance problems make it difficult to predict the source of her disorientation and confusion. Today she is less so and has not obviously preoccupied with internal stimuli. She now is able to tell me that she is at [facility] but remains uncertain about a number of other issues or covers her not having the answer to dates etc. with her irrelevant responses. Perphenazine 4 mg twice daily is resumed. Review of Systems Unable to obtain Mental Status Examination Appearance: Appropriate Consciousness: Alert Orientation: Person Motor Activity: Normal gait Speech: Unremarkable Language: Adequate Fund of Knowledge: Poor Attention and Concentration: Easily distracted, Inadequate Memory: Impaired Mood: Appropriate Affect: Labile Thought Process & Associations: Disorganized Thought Content: Hallucinations, Delusional, Other (Laughing) Hallucination Type: Auditory, Visual Delusion Type: None, Other (Talking to people not present, but firmly believes they are present) Suicidal Ideation: No Suicidal Plan: No Suicidal Intention: No Homicidal Ideation: No Homicidal Plan: No Homicidal Intention: No Insight: Poor Judgment: Poor Assessment and Plan - Assessment (1) Dementia Code(s): F03.90 - Unspecified dementia without behavioral disturbance Status: Acute (2) Altered mental status Code(s): R41.82 - Altered mental status, unspecified Status: Acute - Plan Plan: Patient will be reevaluated by the attending psychiatrist. Continue with current treatment plan. Perphenazine resumed and will be given in her food in order to guarantee that she does not spit the medicine up. Justification for Continued Inpatient Stay: Patient at risk for decompensation in the lower level of care (1) Dementia Qualifiers: Dementia type: unspecified type (2) Altered mental status Qualifiers: Altered mental status type: unspecified Qualified Code(s): R41.82 - Altered mental status, unspecified
[2018-04-25 06:27] VITALS: BP 160/67; PULSE 73; RESP 15; TEMP 97.8; O2SAT 98
[2018-04-25] MEDS: Senna/Docusate Sodium 8.6/50 MG Tablet PO SCH (08:02)
[2018-04-25] MEDS: Isosorbide Mononitrate 60 MG ER 24HR Tablet (Imdur) PO SCH (08:02)
--- NOTE | 2018-04-25 09:07 | P.PNIM ---
Subjective Interval history: Follow-up visit for UTI. Patient is seen and examined ambulating in her room in no acute distress. She denies any fevers, chills, N/V/ D, or painful urination. Patient does not allow me to enter her room as she shuts the door to her room following our short conversation. Nurse does not report any acute concerns or events. Physical Exam Vital signs: Vital Signs 04/24/18 17:50 04/25/18 06:00 Temperature 99.1 F 97.8 F Pulse Rate 117 H 73 Respiratory Rate 22 15 Blood Pressure 106/55 L 160/67 H Pulse Oximetry 97 98 Intake & Output 04/24/18 04/25/18 04/25/18 18:59 06:59 18:59 Intake Total 2760 / 2760 720 / 720 Balance 2760 / 2760 720 / 720 Intake: Oral 2760 / 2760 720 / 720 Other: # Voids 2 1 Narrative: Exam limited 04/07 patient cooperation GENERAL: Well developed/nourished elderly female who appears to be in no acute distress. SKIN:No rashes. HEAD: Atraumatic. Normocephalic. NECK: Trachea midline. MUSCULOSKELETAL: Extremities without clubbing or cyanosis. No obvious deformities. No edema. NEUROLOGICAL: Awake and alert. No obvious cranial nerve deficits. Motor grossly within normal limits. Normal speech. PSYCHIATRIC: Somewhat confused, uncooperative with exam today. Results Labs CBC & Chem 7: 04/22/18 18:14 04/24/18 06:35 Labs: Microbiology 04/23/18 18:23 Catheterized Urine Urine Culture - Preliminary No growth in 24 hours Assessment and Plan (1) Dementia with behavioral disturbance: Code(s): F03.91 - Unspecified dementia with behavioral disturbance Status: Acute (2) UTI (urinary tract infection): Code(s): N39.0 - Urinary tract infection, site not specified Status: Acute Plan 83-year-old female with a history of CABG and generalized weakness presented to the ER under Urena act after her called the police due to confusion and she resisted the police officers. Emergency room workup included a urinalysis which was positive for urinary tract infection. Urinary tract infection -urine culture with proteus mirabilis -continue Macrobid to completed -Repeat UA with no growth after 48hrs Acute kidney injury likely superimposed on CKD -unknown baseline, no prior records available for review -improved -Continue to encourage PO fluid intake -monitor labs Dementia with psychosis -Dementia fits her affect, the psychosis may be related to urinary tract infection -currently under observation and treatment at our [facility] -Continue primary management under psychiatry -Repeat UA with no growth after 48hrs. Syncopal episode 04/20 -? related to perphenazine, previously on hold now resumed 04/24 -Carotid US negative, echo with no acute findings to explain syncopal episode -No further syncopal episodes reported h/o CAD, CABG -currently asymptomatic, follow-up as outpatient -continue enalapril, Lipitor, isosorbide DVT prophylaxis: Patient is ambulatory with a walker Patient medically stable, can transfer to regular psych floor if okay with psych. [facility] will sign off, please reconsult if needed. Code Status: Full code Discussed Condition With: Patient and nurse Discharge Planning: Disposition per psychiatry. Progress Note: Quality VTE Deep Vein Thrombosis/Pulmonary Embolism Present on Admission: No _ (1) UTI (urinary tract infection) Qualifiers: Encounter type: Hematuria presence: without hematuria Indwelling urinary catheter type: Urinary tract infection type: site unspecified Qualified Code( s): N39.0 - Urinary tract infection, site not specified (2) Dementia with behavioral disturbance Qualifiers: Alzheimer's disease onset: Dementia type:
--- NOTE | 2018-04-25 09:44 | P.DSPSY ---
Psychiatry Discharge Summary Inpatient Psychiatric care?: Yes Advance Directives: Yes Mental Health Advance Directive: No Health Care Proxy: No - Admission Admission Date: April 19, 2018 21:36 Brief History: HPI: Patient is a 83-year-old black female who is brought in a [facility] act that described the patient is talking to people who were not present, being confused and felt to be unable to care for herself. The patient was said to be being treated for UTI but was not taking her medication. On admission to the ED there is no clear evidence of delirium but the patient was disoriented as to time place and situation. Patient today is oriented only to person. Patient does endorse having had the experience of talking to people who others did not believe for her in the room. Patient is not aware of her medications and unable to comply. Tobacco Use In Past 30 Days: No How Often Do You Have a Drink Containing Alcohol: Never Hospital Course: Course in the hospital: The patient was hallucinating and disorganized in her thinking for the first few days of her admission. For reasons not explained the perphenazine was put on hold by the neurologist but not resumed until I resumed it yesterday. The patient was having difficulty taking the medication and was spitting the medication out and while she was extremely confused and somewhat paranoid believed due to the urinary tract infection, once the patient was successfully medicated with the Macrobid and with the perphenazine showed marked improvement such that she is felt to be capable of management at home with home health care and the help of her daughter, Jessica. Is should the patient require more care than the family is comfortable giving an KIMBERLY may need be considered. Initially, we were worried that she would not take her medication management continue having problems but it seems since the active hallucination and delusions have disappeared the patient is much more compliant. - Discharge Discharge Date: 04/25/18 Discharge Disposition: Home - Discharge Time > 30 minutes Mental Status Examination Appearance: Appropriate Consciousness: Alert Orientation: Person, Place, Situation Motor Activity: Normal gait Speech: Unremarkable Language: Adequate Fund of Knowledge: Poor Attention and Concentration: Adequate Memory: Impaired Mood: Appropriate Affect: Appropriate Thought Process & Associations: Intact Thought Content: Appropriate Delusion Type: None Suicidal Ideation: No Suicidal Plan: No Suicidal Intention: No Homicidal Ideation: No Homicidal Plan: No Homicidal Intention: No Insight: Fair Judgment: Impulsive Discharge/Advance Care Plan - Results Vital Signs: Last Vital Signs Temp 97.8 F 04/25/18 06:00 Pulse 73 04/25/18 06:00 Resp 15 04/25/18 06:00 BP 160/67 H 04/25/18 06:00 Pulse Ox 98 04/25/18 06:00 Lab Results: Laboratory Results TSH 1.560 uIU/mL (0.358-3.740) 04/19/18 16:22 Urine Culture Comments Culture not ind 04/23/18 23:25 Summary of Procedures: None Imaging: ITS Impressions Head CT 04/19/18 16:37 CONCLUSION: 1. No acute findings in the brain. 2. 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 . Carotid Doppler Study 04/20/18 00:00 CONCLUSION: Minimal plaque at the carotid bulb regions without significant stenosis. Pending Results: None - Medications Number of antipsychotic medications at discharge: 1 - Discharge Care Plan Goals to Promote Your Health: * To prevent worsening of your condition and complications * To maintain your health at the optimal level Directions to Meet Your Goals: Take your medications as prescribed Follow your dietary instruction Follow activity as directed Keep your appointments as scheduled Take your immunizations and boosters as scheduled If your symptoms worsen call your PCP, if no PCP go to Urgent Care Center or Emergency Room For 26/09 questions related to your inpatient stay or results of tests pending at discharge, please contact Dr. Taco Kuo MD at Smoking is Dangerous to Your Health. Avoid second hand smoking
--- NOTE | 2018-04-25 11:33 | P.DCO ---
- Home Health Nursing Order: Medication education-adverse effect, Nursing assessment with vital signs - Case Management Consult Case Management Consult-Home Health: Yes - Certification I have seen patient Thania Arguelles on 04/25/18. My clinical findings support the need for the requested home health care services because: Medication compliance is questionable, Limited ability to care for self I certify that my clinical findings support that this patient is homebound because: Unsafe to leave home unassisted
== END 2018-04-25 13:40 | disposition home or self-care (01) | DRG 884 ==
LOC: NEPD 15:28 → NEDA 21:36 → H260 22:00 → H4EA 04-20 17:35
PROVIDERS: ADMIT Psychiatry & Neurology Child & Adolescent Psychiatry; ATTEND Psychiatry & Neurology Child & Adolescent Psychiatry
DX: Z91.14 Patient's other noncompliance with medication regimen; R55 Syncope and collapse; M19.90 Unspecified osteoarthritis, unspecified site; Z87.11 Personal history of peptic ulcer disease; N18.9 Chronic kidney disease, unspecified; N39.0 Urinary tract infection, site not specified; N17.9 Acute kidney failure, unspecified; F03.91 Unspecified dementia, unspecified severity, with behavioral disturbance; Z95.1 Presence of aortocoronary bypass graft; Z95.5 Presence of coronary angioplasty implant and graft; I25.10 Atherosclerotic heart disease of native coronary artery without angina pectoris; B96.4 Proteus (mirabilis) (morganii) as the cause of diseases classified elsewhere; I12.9 Hypertensive chronic kidney disease with stage 1 through stage 4 chronic kidney disease, or unspecified chronic kidney disease; Z87.440 Personal history of urinary (tract) infections
CPT/HCPCS: 70450; 80048; 80053; 80307; 81001; 82948; 82962; 83735; 84443; 85025; 87077; 87086; 87186; 90791; 93306; 93880; 99285; J7030; Q0175